=== PATIENT | female | born 1960 | race American Indian/Alaskan Native ===

== ENCOUNTER 2017-10-11 16:34 | Emergency (ER) | payer MEDICAID ==
[2017-10-11] MEDS ORDERED: Sodium Chloride 0.9% 500 ML IV STA (17:18)
--- NOTE | 2017-10-11 17:23 | ED PDOC ---
Arrival/HPI - General Chief Complaint: Flu-like Symptoms Time Seen by Provider: 10/11/17 16:41 Historian: Patient EM Caveat: Acuity of Condition - History of Present Illness Narrative History of Present Illness (Text): 10/11/17 17:19 Pt is 57 yo F who c/o flu-like symptoms x 1 day. Reports chills last night and a non-productive cough along with body aches, head pain and upset stomach. States her last meal was yesterday but she had tea today, nothing else. Reports that she has bronchitis from tie to time and uses a nebulizer and albuterol inhaler at home prn. Denies n/v/d, sob, cp. Symptom Onset: Gradual Symptom Course: Worsening Severity Level: 2 Activities at Onset: Rest Context: Home Past Medical History - Infectious Disease Hx of Infectious Diseases: None - Reproductive Menopause: Yes - Cardiac Hx Cardiac Disorders: Yes Hx Hypertension: Yes - Psychiatric Hx Substance Use: No - Anesthesia Hx Anesthesia: No Hx Anesthesia Reactions: No Hx Malignant Hyperthermia: No Family/Social History Smoking Status: Current Some Days Smoker Hx Alcohol Use: No Hx Substance Use: No Allergies/Home Meds Allergies/Adverse Reactions: Allergies No Known Allergies Allergy (Verified 10/11/17 17:10) Home Medications: Home Meds Medication Instructions Recorded Confirmed Carvedilol [Coreg] 25 mg PO DAILY 10/10/16 10/11/17 amLODIPine [Norvasc] 10 mg PO DAILY 10/10/16 10/11/17 Physical Exam Vital Signs Temp Pulse Resp BP Pulse Ox 10/11/17 19:03 98.9 F 78 18 138/74 95 10/11/17 17:53 102.2 F H 10/11/17 17:05 102.2 F H 102 H 20 94/50 L 96 Temperature: Febrile Blood Pressure: Normal Pulse: Regular Respiratory Rate: Normal Appearance: Positive for: Ill-Appearing, Uncomfortable Pain Distress: Mild Mental Status: Positive for: Alert and Oriented X 3 - Systems Exam Head: Present: Atraumatic, Normocephalic Pupils: Present: PERRL Extroacular Muscles: Present: EOMI Conjunctiva: Present: Injected Mouth: Present: Moist Mucous Membranes Neck: Present: Normal Range of Motion Respiratory/Chest: Present: Clear to Auscultation, Good Air Exchange. No: Respiratory Distress, Accessory Muscle Use Cardiovascular: Present: Regular Rate and Rhythm, Normal S1, S2. No: Murmurs Abdomen: Present: Normal Bowel Sounds. No: Tenderness, Distention, Peritoneal Signs Back: Present: Normal Inspection Upper Extremity: Present: Normal Inspection. No: Cyanosis, Edema Lower Extremity: Present: Normal Inspection. No: Edema Neurological: Present: GCS=15, CN II-XII Intact, Speech Normal Skin: Present: Warm, Dry, Normal Color. No: Rashes Psychiatric: Present: Alert, Oriented x 3, Normal Insight, Normal Concentration Medical Decision Making ED Course and Treatment: 10/11/17 17:24 Pt is 57 yo F who c/o flu-like symptoms x 1 day. Plan 1. cbc, cmp, ua 2. cxr 3. rapid flu 4. fluids assess and dispo home Pt continues to feel weak with cough - Lab Interpretations Narrative Lab Interpretation (Text): 10/11/17 19:20 Neg Influenza Lab Results: 10/11/17 18:04 10/11/17 18:04 Lab Results 10/11/17 18:04: Sodium 138, Potassium 3.7, Chloride 101, Carbon Dioxide 26, Anion Gap 15, BUN 11, Creatinine 0.7, Est GFR ( Amer) > 60, Est GFR (Non- Af Amer) > 60, Random Glucose 99, Calcium 9.7, Total Bilirubin 0.4, AST 26, ALT 38, Alkaline Phosphatase 47, Total Protein 7.3, Albumin 4.1, Globulin 3.2, Albumin/Globulin Ratio 1.3 10/11/17 18:04: Influenza Typ A,B (EIA) Negative for flu a/b 10/11/17 18:04: WBC 8.8, RBC 3.99, Hgb 11.7 L, Hct 36.0, MCV 90.2, MCH 29.3, MCHC 32.5, RDW 14.2, Plt Count 227, MPV 11.1 H, Gran % 85.5 H, Lymph % (Auto) 6.4 L, [place] % (Auto) 7.4 H, Eos % (Auto) 0.6 L, Baso % (Auto) 0.1, Gran # 7.48 H , Lymph # 0.6 L, [place] # 0.7 H, Eos # 0.1, Baso # 0.01 I have reviewed the lab results: Yes (Neg Flu) - RAD Interpretation Radiology Orders: 10/11/17 17:17 CXR [CHEST TWO VIEWS (PA/LAT)] [RAD] Stat - Medication Orders Current Medication Orders: Acetaminophen (Tylenol 325mg Tab) 325 mg PO STAT STA Stop: 10/11/17 19:49 Discontinued Medications Acetaminophen (Tylenol 325mg Tab) 325 mg PO STAT STA Stop: 10/11/17 17:26 Last Admin: 10/11/17 17:53 Dose: 325 mg MAR Pain/Vitals Document 10/11/17 17:53 OCS (Rec: 10/11/17 17:53 OCS [place] [id number]) Pain Reassessment Is This A Pain ReAssessment? Yes Sleep Is patient sleeping during reassessment? No Presence of Pain Presence of Pain Yes Location Pain Location Body Site Generalized Description Constant Intensity 10 Aggravating Factors ADL's Vitals Temperature (97.6 F-99.6 F) 102.2 F Temperature Source Oral Sodium Chloride (Sodium Chloride 0.9%) 500 mls @ 999 mls/hr IV .Q31M STA Stop: 10/11/17 17:48 Last Admin: 10/11/17 17:54 Dose: 999 mls/hr eMAR Start Stop Document 10/11/17 17:54 OCS (Rec: 10/11/17 17:54 OCS [place] [id number]) Intravenous Solution Start Date 10/11/17 Start Time 17:54 End Date 10/11/17 End time 18:24 Total Infusion Time 30 Disposition/Present on Arrival - Present on Arrival Any Indicators Present on Arrival: Yes History of DVT/PE: No History of Uncontrolled Diabetes: No Urinary Catheter: No History of Decub. Ulcer: No History Surgical Site Infection Following: None - Disposition Have Diagnosis and Disposition been Completed?: Yes Diagnosis: Influenza, Cough Disposition: HOME/ ROUTINE Disposition Time: 19:51 Patient Plan: Discharge Patient Problems: Current Active Problems Problem Status Onset Cough Acute Influenza Acute Condition: STABLE Discharge Instructions (ExitCare): Influenza (ED), Ibuprofen (By mouth) Additional Instructions: Rest and plenty of fluids is recommended for your recovery. Take the ibuprofen for pain and fever and use your nebulizer and ventolin, previously prescribed, for relief with your cough. We recommend that your follow up with your doctor in the next 48 hrs but if you develop a very high fever, shortness of breath and other alarming symptoms, return to the emergency department as soon a possible. Referrals: [facility], [Non-Staff] - Follow up with primary Forms: [employer] (K[place]akh)
[2017-10-11 17:33] VITALS: BMI 34.4
[2017-10-11 18:27] LABS: BASO # 0.01 K/mm3 (0.0-2.0); BASO % 0.1 % (0.0-3.0); EOS # 0.1 (0.0-0.7); EOS % 0.6 % (1.5-5.0); GRAN # 7.48 (1.4-6.5); GRAN % 85.5 % (50.0-68.0); HEMOGLOBIN 11.7 g/dL (12.0-16.0); LYMPH # 0.6 (1.2-3.4); LYMPH % 6.4 % (22.0-35.0); MEAN CELL VOLUME 90.2 fl (80.0-105.0); MEAN CORPUSCULAR HEMOGLOBIN 29.3 pg (25.0-35.0); MEAN CORPUSCULAR HGB CONC 32.5 g/dl (31.0-37.0); MEAN PLATELET VOLUME 11.1 fl (7.0-11.0); MONO # 0.7 (0.1-0.6); MONO % 7.4 % (1.0-6.0); RBC 3.99 10^6/uL (3.5-6.1); RED CELL DISTRIBUTION WIDTH 14.2 % (11.5-14.5); WHITE BLOOD COUNT 8.8 10^3/ul (4.5-11.0)
[2017-10-11 18:43] LABS: ALB/GLOB RATIO 1.3 (1.1-1.8); ALBUMIN 4.1 g/dL (3.0-4.8); ALT/SGPT 38 U/L (7-56); AST/SGOT 26 U/L (14-36); BLOOD UREA NITROGEN 11 mg/dL (7-21); CALCIUM 9.7 mg/dL (8.4-10.5); GFR AFRICAN-AMERICAN > 60; GFR NON-AFRICAN AMERICAN > 60
[2017-10-11 19:07] VITALS: BP 138/74; PULSE 78; RESP 18; TEMP 98.9; O2SAT 95
--- NOTE | 2017-10-12 08:15 | RAD ---
HISTORY: cough COMPARISON: No prior. TECHNIQUE: Chest PA and lateral FINDINGS: LUNGS: No active pulmonary disease. PLEURA: No significant pleural effusion identified. No pneumothorax apparent. CARDIOVASCULAR: Mild cardiomegaly. Mild vascular congestion OSSEOUS STRUCTURES: No significant abnormalities. VISUALIZED UPPER ABDOMEN: Normal. OTHER FINDINGS: None. IMPRESSION: Mild cardiomegaly and mild vascular congestion
== END 2017-10-11 20:23 | disposition home or self-care (01) ==
LOC: ED 16:34
DX: J11.1 Influenza due to unidentified influenza virus with other respiratory manifestations (principal); F17.210 Nicotine dependence, cigarettes, uncomplicated
CPT/HCPCS: 71046; 80053; 85025; 87804; 99283; J7040